=== PATIENT | female | born 1955 | race Caucasian/White ===

== ENCOUNTER → 2016-11-13 | Outpatient (CLI) | payer MEDICARE ==
--- NOTE | 2016-11-13 13:25 | US ---
EXAMINATION TYPE: US venous doppler duplex LE DATE OF EXAM: 11/13/2016 12:53 PM COMPARISON: NONE CLINICAL HISTORY: I10 htn,M79.89 bilateral lower extremity swelling. SIDE PERFORMED: Bilateral TECHNIQUE: The lower extremity deep venous system is examined utilizing real time linear array sonog simnó with graded compression, doppler sonography and color-flow sonography. VESSELS IMAGED: External Iliac Vein (EIV) Common Femoral Vein Deep Femoral Vein Greater Saphenous Vein * Femoral Vein Popliteal Vein Small Saphenous Vein * Proximal Calf Veins (* superficial vessels) Right Leg: Appears negative for DVT Left Leg: Appears negative for DVT Grayscale, color doppler, spectral doppler imaging performed of the deep veins of the lower extremiti es. There is normal flow, compressibility, vascular waveforms. IMPRESSION: No sonographic evidence of deep venous arthrosis within either lower extremity.
== END ==
LOC: RADUSWWP 12:17
PROVIDERS: ATTEND Family Medicine
DX: M79.89 Other specified soft tissue disorders (principal); I10 Essential (primary) hypertension
CPT/HCPCS: 93970

== ENCOUNTER → 2017-03-11 | Outpatient (CLI) | payer MEDICARE, OTHER ==
--- NOTE | 2017-03-12 08:23 | BD ---
EXAMINATION TYPE: MG DEXA axial skeleton. DATE OF EXAM: 03/11/2017 COMPARISON: NONE CLINICAL HISTORY: 61-year-old female postmenopausal screening Height: 5FT 1IN Weight: 219 FRAX RISK QUESTIONS: Alcohol (3 or more units per day): NO Family History (Parent hip fracture): NO Glucocorticoids (More than 3mos): NO (Ex: prednisone, prednisolone, methylprednisolone, dexamethasone, and hydrocortisone). History of Fracture in Adulthood: NO Secondary Osteoporosis: 1. Type 1 Diabetes: NO 2. Hyperthyroidism: NO 3. Menopause before 45: YES 4. Malnutrition: NO 5. Chronic liver disease: NO Rheumatoid Arthritis: NO Current Tobacco Use: NO RISK FACTORS HISTORY OF: Postmenopausal woman: TOTAL HYST AG E 45 MEDICATIONS: Additional Medications: ATENOLOL,LIPITOR,ABILIFY, VENLAFAXINE, TOPIRAMATE,TRAZADONE, CLONAZEPAM Additional History: EXAM MEASUREMENTS: Bone mineral densitometry was performed using the [employer] System. Bone mineral density as measured about the Lumbar spine is: ----- L1-L4(G/cm2): 0.919 T Score Values are as follows: ----- L2: -2.1 ----- L3: -2.3 ----- L4: -2.6 ----- L1-L4: -2.2 BASELINE Bone mineral density about the R hip (g/cm2): 0.844 Bone mineral density about the L hip (g/cm2): 0.837 T Score values are as follows: -----R Neck: -1.4 -----L Neck: -1.4 -----R Total: -0.2 -----L Total: -0.4 BASELINE IMPRESSION: Osteopenia (T Score between -2.5 and -1 as noted by T score values There is slightly increased risk of fracture and the patient may be considered for treatment. Re-Screen 2-5 years. NOTE: T-SCORE=SD OF THE YOUNG ADULT MEAN.
== END | disposition home or self-care (01) ==
LOC: RADBDWWP 14:28
PROVIDERS: ATTEND Obstetrics & Gynecology
DX: M85.89 Other specified disorders of bone density and structure, multiple sites (principal); Z78.0 Asymptomatic menopausal state
CPT/HCPCS: 77080

== ENCOUNTER → 2017-05-28 | Outpatient (CLI) | payer MEDICARE, OTHER ==
--- NOTE | 2017-05-28 10:55 | XR ---
EXAMINATION TYPE: XR KUB DATE OF EXAM: 05/28/2017 COMPARISON: 08/19/2011 HISTORY: Pain renal stone TECHNIQUE: One view abdominal series FINDINGS: The osseous structures are intact. The bowel gas pattern is nonspecific. Lung bases are clear. LAP- BAND surgery noted. Osteitis pubis condensans noted. Retained fecal debris limits assessment of the r enal outlines. No obvious suspicious calcifications. IMPRESSION: 1. Nonspecific abdomen. 3 tiny less than 5 mm calcifications left pelvis are nonspecific and likely vascular. Present on the previous x-ray.
== END | disposition home or self-care (01) ==
LOC: RADXRMAIN 10:34
PROVIDERS: ATTEND Urology
DX: N28.9 Disorder of kidney and ureter, unspecified (principal)
CPT/HCPCS: 74018

== ENCOUNTER → 2017-07-02 | Outpatient (CLI) | payer MEDICARE, OTHER ==
[2017-07-02 14:37] LABS: HCT 42.6 % (34.0-46.0); HGB 13.6 gm/dL (11.4-16.0); MCH 27.5 pg (25.0-35.0); MCV 86.1 fL (80.0-100.0); Mean Platelet Volume 7.7; Platelet Count 266 k/uL (150-450); RBC 4.95 m/uL (3.80-5.40); RDW 14.1 % (11.5-15.5)
[2017-07-02 14:44] LABS: Appearance,Urine Clear (Clear); Bilirubin,Urine Negative (Negative); Blood,Urine Negative (Negative); Color,Urine Yellow; Glucose,Urine (UA) Negative (Negative); Ketones,Urine Negative (Negative); Leukocyte Esterase,Urine Negative (Negative); Nitrite,Urine Negative (Negative); Protein,Urine Negative (Negative); Specific Gravity,Urine 1.014 (1.001-1.035); Urobilinogen,Urine <2.0 mg/dL (<2.0)
[2017-07-02 14:48] LABS: ALT 12 U/L (9-52); AST 21 U/L (14-36); Albumin 4.3 g/dL (3.5-5.0); Alkaline Phosphatase 117 U/L (38-126); Anion Gap 15 mmol/L; Blood Urea Nitrogen 22 mg/dL (7-17); Calcium 9.9 mg/dL (8.4-10.2); Carbon Dioxide 20 mmol/L (22-30); Chloride 110 mmol/L (98-107); Glucose 92 mg/dL (74-99); Phosphorus 2.6 mg/dL (2.5-4.5); Potassium 4.5 mmol/L (3.5-5.1); Sodium 145 mmol/L (137-145); Total Bilirubin 0.4 mg/dL (0.2-1.3); Total Protein 6.9 g/dL (6.3-8.2)
== END | disposition home or self-care (01) ==
LOC: LABWHC1 13:48
PROVIDERS: ATTEND Internal Medicine
DX: D64.9 Anemia, unspecified (principal); N39.0 Urinary tract infection, site not specified; E83.39 Other disorders of phosphorus metabolism
CPT/HCPCS: 36415; 80053; 81003; 84100; 85027

== ENCOUNTER → 2018-03-05 | Outpatient (CLI) | payer MEDICARE ==
[2018-03-05 13:58] LABS: Basophils # (A) 0.1 k/uL (0-0.2); Basophils % (A) 1 %; Eosinophils # (A) 0.5 k/uL (0-0.7); Eosinophils % (A) 5 %; HCT 44.4 % (34.0-46.0); HGB 13.6 gm/dL (11.4-16.0); Lymphocytes # (A) 1.9 k/uL (1.0-4.8); Lymphocytes % (A) 21 %; MCH 27.2 pg (25.0-35.0); MCHC 30.7 g/dL (31.0-37.0); MCV 88.7 fL (80.0-100.0); Monocytes # (A) 0.5 k/uL (0-1.0); Monocytes % (A) 6 %; Neutrophils % (A) 66 %; Platelet Count 294 k/uL (150-450); RBC 5.01 m/uL (3.80-5.40); RDW 14.5 % (11.5-15.5); WBC 9.1 k/uL (3.8-10.6)
[2018-03-05 15:04] LABS: Appearance,Urine Cloudy (Clear); Bacteria,Urine Occasional /hpf; Bilirubin,Urine Negative (Negative); Blood,Urine Negative (Negative); Color,Urine Yellow; Glucose,Urine (UA) Negative (Negative); Hyaline Casts,Urine 5 /lpf (0-2); Ketones,Urine Negative (Negative); Leukocyte Esterase,Urine Negative (Negative); Mucus,Urine Occasional /hpf; Nitrite,Urine Negative (Negative); Protein,Urine Trace (Negative); RBC,Urine <1 /hpf (0-5); Squamous Epithelial Cell,Urine 9 /hpf (0-4); Urobilinogen,Urine <2.0 mg/dL (<2.0); WBC,Urine 2 /hpf (0-5)
[2018-03-05 19:55] LABS: Iron Saturation 22.44 (12.00-45.00)
[2018-03-05 20:03] LABS: Vitamin D 25 Hydroxy 38.9 ng/mL (30.0-100.0)
[2018-03-05 20:26] LABS: Parathyroid Hormone Intact 111.5 pg/mL (14.0-72.0)
[2018-03-05 20:27] LABS: Albumin 4.5 g/dL (3.80-4.90); Albumin/Globulin Ratio 2.25 (1.20-2.10); Anion Gap 12.5 mmol/L (4.00-12.00); Calcium 9.2 mg/dL (8.7-10.3); Carbon Dioxide 24.5 mmol/L (21.6-31.8); Phosphorus 4.3 mg/dL (2.4-5.1); Total Bilirubin 0.5 mg/dL (0.3-1.2); Total Protein 6.5 g/dL (6.2-8.2); Uric Acid 6.1 mg/dL (2.9-7.7)
== END | disposition home or self-care (01) ==
LOC: LABWHC1 12:57
PROVIDERS: ATTEND Internal Medicine
DX: N17.9 Acute kidney failure, unspecified (principal); N39.0 Urinary tract infection, site not specified; N25.81 Secondary hyperparathyroidism of renal origin; E55.9 Vitamin D deficiency, unspecified; M10.9 Gout, unspecified
CPT/HCPCS: 36415; 80053; 81001; 82306; 82728; 83540; 83550; 83735; 83970; 84100; 84550; 85025

== ENCOUNTER → 2018-03-10 | Outpatient (CLI) | payer MEDICARE ==
[2018-03-10 08:09] VITALS: BP 134/88; PULSE 76; TEMP 97.6; BMI 40.4
--- NOTE | 2018-03-10 08:45 | P.HPOB ---
History of Present Illness H&P Date: 03/10/18 Chief Complaint: The patient is here for her routine gynecologic exam and mammogram. This is a 62 year old G3 PIII with an LMP of 2000. She is status post BAMBI BSO for benign reasons. The patient is without gynecologic complaints. Review of Systems The patient has gained 3 pounds over the last year. She denies respiratory, cardiac, or G.I. problems. Past Medical History Past Medical History: Hyperlipidemia, Hypertension Additional Past Medical History / Comment(s): Osteopenia. 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 BAMBI BSO was done for benign reasons. History of Any Multi-Drug Resistant Organisms: None Reported Past Surgical History: Bariatric Surgery (Lap band surgery 2005), Hysterectomy ( BAMBI BSO in 2000) Additional Past Surgical History / Comment(s): Kidney stones removed. Colonoscopy 2008. Past Psychological History: Bipolar, Depression Smoking Status: Former smoker (Quit 1996) Past Alcohol Use History: None Reported Past Drug Use History: Marijuana (Many years ago) Additional Drug Use History / Comment(s): Used marijuana many years ago. Denies any current use. Additional History: She has been since 1973. She does not work outside the home. Her has had medical issues. - Past Family History Sister(s) Family Medical History: Cancer (Breast cancer and 2 sisters.) Brother(s) Family Medical History: Cancer (Bone cancer), COPD (In 2nd brother.) Mother Family Medical History: Cancer (Cervical cancer) Medications and Allergies Home Medications Medication Instructions Recorded Confirmed Type ARIPiprazole [Abilify] 10 mg PO DAILY 03/10/18 03/10/18 History Atenolol [Tenormin] 25 mg PO DAILY 03/10/18 03/10/18 History Atorvastatin [Lipitor] 20 mg PO DAILY 03/10/18 03/10/18 History Cholecalciferol [Vitamin D3] 1,000 unit PO DAILY 03/10/18 03/10/18 History Multivitamin [Multivitamins Adult 1 each PO DAILY 03/10/18 03/10/18 History Gummies] Topiramate [Topamax] 100 mg PO DAILY 03/10/18 03/10/18 History Venlafaxine HCl ER [Effexor XR] 150 mg PO DAILY 03/10/18 03/10/18 History clonazePAM 1 mg PO HS 03/10/18 03/10/18 History traZODone HCL 150 mg PO HS 03/10/18 03/10/18 History Allergies Allergy/AdvReac Type Severity Reaction Status Date / Time No Known Allergies Allergy Unverified 03/10/18 07:58 Exam Vital Signs Temp Pulse BP 03/10/18 08:07 97.6 F 76 134/88 Intake and Output 03/09/18 03/10/18 03/10/18 22:59 06:59 14:59 Other: Weight 103.419 kg Height 5'3", weight 128 pounds, BMI 40.4. This is a well-developed well-nourished heavyset white female who is alert and oriented times 3 in no acute distress. HEENT: Within normal limits. NECK: Supple without mass or thyromegaly. CHEST AND LUNGS: Clear to auscultation. HEART: Regular rate and rhythm. BREASTS: Are without mass or discharge. AXILLARY EXAM: Negative for adenopathy. BACK: Negative for CVA tenderness. ABDOMEN: Soft, nontender, without palpable masses. PELVIC EXAM: External genitalia appears normal with mild atrophy. There is a erythema in the groin creases which extend to the inner thigh and buttock area. These groin creases are quite moist. Vagina appears normal mild atrophy. There is no evidence of prolapse. Bimanual examination is negative for mass or tenderness. RECTAL EXAM: Rectovaginal exam is negative for mass or tenderness and is negative for occult blood. EXTREMITIES: Nontender. IMPRESSION: 1. 62-year-old menopausal female status post BAMBI BSO for benign reasons with normal gynecologic exam. 2. Erythema intertrigo in the groin creases probably secondary to excess moisture. 3. Osteopenia. PLAN: 1. Pap smears have been discontinued. 2. Self breast awareness was discussed with the patient. 3. Screening mammogram will be done today. 4. Osteoporosis prevention was discussed. I have stressed the importance of adequate calcium, vitamin D and regular exercise. Recommended amounts of calcium and vitamin D were also discussed. We will plan on repeating bone density testing in one year. 5. Nystatin powder to the groin creases BID. She will try to thoroughly dry the area after bathing prior to applying the nystatin powder. The electronic prescription will be sentenced to [facility]. 6. BRCA testing was offered. She will consider this but at this time is not interested. 7. Colonoscopy was discussed with the patient since it is been 10 years since her last one. She states she has done Cologard testing as an alternative through her primary care physician and she states this was negative 1 month ago. 8. She will return in one year.
--- NOTE | 2018-03-13 12:52 | MM ---
Reason for exam: screening (asymptomatic). Last mammogram was performed 1 year and 1 month ago. History: Patient is postmenopausal. Family history of premenopausal breast cancer in 2 sisters at age 42. Took estrogen for 4 years. MG 3D Screening Mammo W/Cad Bilateral CC and MLO view(s) were taken. Prior study comparison: February 11, 2017, bilateral MG 3d screening mammo w/cad. January 21, 2016, bilateral MG 3d screening mammo w/cad. There are scattered fibroglandular densities. Bilateral chronic nodularity. No significant changes when compared with prior studies. ASSESSMENT: Benign, BI-RAD 2 RECOMMENDATION: Routine screening mammogram of both breasts in 1 year.
== END | disposition home or self-care (01) ==
LOC: WWCWWP 07:44
PROVIDERS: ATTEND Obstetrics & Gynecology
DX: Z12.31 Encounter for screening mammogram for malignant neoplasm of breast (principal)
CPT/HCPCS: 77063; 77067

== ENCOUNTER → 2018-11-18 | Outpatient (CLI) | payer MEDICARE ==
--- NOTE | 2018-11-19 10:55 | ECHOF ---
Referral Reason:I27.20 Pulmonary hypertension, unspecified MEASUREMENTS -------- HEIGHT: 157.5 cm WEIGHT: 96.2 kg BP: RVIDd: 3.9 cm (< 3.3) IVSd: 0.9 cm (0.6 - 1.1) LVIDd: 3.4 cm (3.9 - 5.3) LVPWd: 1.3 cm (0.6 - 1.1) IVSs: 1.3 cm LVIDs: 2.6 cm LVPWs: 1.7 cm LAESV Index (A-L): 14.22 ml/m Ao Diam: 2.6 cm (2.0 - 3.7) AV Cusp: 1.8 cm (1.5 - 2.6) LA Diam: 3.8 cm (2.7 - 3.8) MV EXCURSION: 12.842 mm (> 18.000) MV EF SLOPE: 33 mm/s (70 - 150) EPSS: 0.5 cm MV E Henok: 0.50 m/s MV DecT: 271 ms MV A Henok: 0.67 m/s MV E/A Ratio: 0.74 RAP: 5.00 mmHg RVSP: 14.41 mmHg TAPSE: 1.84 cm FINDINGS -------- Sinus rhythm. This was a technically adequate study. LV size, wall thickness and systolic function are normal, with an EF greater than 55%. The left ashley tricular size is normal. The diastolic filling pattern is normal for the age of the patient 12.08. The right ventricle is normal in size. Normal LA size by volume 22+/-6 ml/m2. The right atrial size is normal. Interatrial and interventricular septum intact. The aortic valve is trileaflet and appears structurally normal. There is mild aortic regurgitation. The mitral valve is normal. Mild mitral regurgitation is present. Mild tricuspid regurgitation present. Right ventricular systolic pressure is normal at < 35 mmHg. The right ventricular systolic pressure, as measured by Doppler, is 14.41mmHg. Trace/mild (physiologic) pulmonic regurgitation. The aortic root size is normal. Echo free space represents a pericardial fat pad. CONCLUSIONS -------- 1. Sinus rhythm. 2. This was a technically adequate study. 3. LV size, wall thickness and systolic function are normal, with an EF greater than 55%. 4. The left ventricular size is normal. 5. The diastolic filling pattern is normal for the age of the patient 12.08 6. Normal LA size by volume 22+/-6 ml/m2. 7. The right atrial size is normal. 8. There is mild aortic regurgitation. 9. Mild mitral regurgitation is present. 10. Mild tricuspid regurgitation present. 11. Right ventricular systolic pressure is normal at < 35 mmHg. 12. Trace/mild (physiologic) pulmonic regurgitation. 13. The aortic root size is normal. 14. Echo free space represents a pericardial fat pad. BRINE WELL OPERATOR: Gisela Mendes RDCS
== END | disposition home or self-care (01) ==
LOC: RADECHMAIN 14:47
PROVIDERS: ATTEND Internal Medicine Sleep Medicine
DX: I08.3 Combined rheumatic disorders of mitral, aortic and tricuspid valves (principal); I27.20 Pulmonary hypertension, unspecified
CPT/HCPCS: 93306

== ENCOUNTER → 2019-08-16 | Outpatient (CLI) | payer MEDICARE ==
[2019-08-16 08:02] VITALS: BP 104/76; PULSE 72; RESP 20; TEMP 98
--- NOTE | 2019-08-16 08:34 | P.HPOB ---
History of Present Illness H&P Date: 08/16/19 Chief Complaint: The patient is here for her routine gynecologic exam and ma mmogram. This is a 64-year-old with an LMP of 2000. The patient is without gynecologic complaints. The patient is status post BAMBI/BSO for benign reasons. Review of Systems The patient's weight has been stable over the last year. She denies respiratory, cardiac, or G.I. problems. Past Medical History Past Medical History: Hyperlipidemia, Hypertension Additional Past Medical History / Comment(s): Osteopenia. 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 BAMBI BSO was done for benign reasons. History of Any Multi-Drug Resistant Organisms: None Reported Past Surgical History: Bariatric Surgery, Hysterectomy Additional Past Surgical History / Comment(s): Kidney stones removed. Colonoscopy 2008(Cologard 2018). Past Psychological History: Bipolar, Depression Smoking Status: Former smoker Past Alcohol Use History: None Reported Additional Past Alcohol Use History / Comment(s): Quit smoking in 1996. Past Drug Use History: Marijuana Additional Drug Use History / Comment(s): Used marijuana many years ago. Denies any current use. Additional History: She has been a since 2019. She is not sexually active. She does not work outside of the home. - Past Family History Sister(s) Family Medical History: Cancer Additional Family Medical History / Comment(s): 2 sisters with breast cancer. Brother(s) Family Medical History: Cancer, COPD Additional Family Medical History / Comment(s): Bone cancer. Another brother had COPD. Mother Family Medical History: Cancer Additional Family Medical History / Comment(s): Cervical cancer. Medications and Allergies Home Medications Medication Instructions Recorded Confirmed Type ARIPiprazole [Abilify] 10 mg PO DAILY 03/10/18 08/16/19 History Atenolol [Tenormin] 25 mg PO DAILY 03/10/18 08/16/19 History Atorvastatin [Lipitor] 10 mg PO HS 03/10/18 08/16/19 History Cholecalciferol [Vitamin D3] 1,000 unit PO DAILY 03/10/18 08/16/19 History Multivitamin [Multivitamins Adult 1 each PO DAILY 03/10/18 08/16/19 History Gummies] Topiramate [Topamax] 50 mg PO BID 03/10/18 08/16/19 History Venlafaxine HCl ER [Effexor XR] 300 mg PO DAILY 03/10/18 08/16/19 History clonazePAM 1 mg PO HS 03/10/18 08/16/19 History traZODone HCL 150 mg PO HS 03/10/18 08/16/19 History Areds 2 tab PO DAILY 08/16/19 08/16/19 History Allergies Allergy/AdvReac Type Severity Reaction Status Date / Time No Known Allergies Allergy Unverified 08/16/19 08:00 Exam Vital Signs Temp Pulse Resp BP Pulse Ox 08/16/19 08:00 98.0 F 72 20 104/76 96 Intake and Output 08/15/19 08/16/19 08/16/19 22:59 06:59 14:59 Other: Weight 102.965 kg Height 5 feet 2 inches, weight 227 pounds, BMI 41.5. This is a well-developed well-nourished heavyset white female who is alert and oriented times 3 in no acute distress. HEENT: Within normal limits. NECK: Supple without mass or thyromegaly. CHEST AND LUNGS: Clear to auscultation. HEART: Regular rate and rhythm. BREASTS: Are without mass or discharge. AXILLARY EXAM: Negative for adenopathy. BACK: Negative for CVA tenderness. ABDOMEN: Soft, nontender, without palpable masses. PELVIC EXAM: External genitalia appears normal with mild atrophy. Vagina appears normal mild atrophy. There is no evidence of prolapse. Bimanual examination is negative for mass or tenderness. RECTAL EXAM: Rectovaginal exam is negative for mass or tenderness and is negative for occult blood. There is moderate stool in the rectum. EXTREMITIES: Nontender. IMPRESSION: 1. 64-year-old menopausal female status post BAMBI/BSO for benign reasons with normal gynecologic exam. 2. History of osteopenia. PLAN: 1. Pap smears have been discontinued. 2. Self breast awareness was discussed with the patient. 3. Screening mammogram will be done today. 4. Osteoporosis prevention was discussed. I have stressed the importance of adequate calcium, vitamin D and regular exercise. Recommended amounts of calcium and vitamin D were also discussed. Her last bone density test was done on 03/11/2017 and I recommended repeating this. The order slip was given to the patient for this. 5. She was advised to return in one year for her annual well woman exam.
--- NOTE | 2019-08-17 08:26 | MM ---
Reason for exam: screening (asymptomatic). Last mammogram was performed 1 year and 5 months ago. History: Patient is postmenopausal. Family history of premenopausal breast cancer in 2 sisters at age 42. Took estrogen for 4 years. Physical Findings: A clinical breast exam by your physician is recommended on an annual basis and results should be correlated with mammographic findings. MG 3D Screening Mammo W/Cad Bilateral CC and MLO view(s) were taken. XCCL view(s) were taken of the right breast. Prior study comparison: March 10, 2018, bilateral MG 3d screening mammo w/cad. February 11, 2017, bilateral MG 3d screening mammo w/cad. There are scattered fibroglandular densities. There is chronic nodularity bilaterally. There is no dominant lesion. No significant changes when compared with prior studies. ASSESSMENT: Benign, BI-RAD 2 RECOMMENDATION: Routine screening mammogram of both breasts in 1 year.
== END | disposition home or self-care (01) ==
LOC: WWCWWP 07:34
PROVIDERS: ATTEND Obstetrics & Gynecology
DX: Z12.31 Encounter for screening mammogram for malignant neoplasm of breast (principal)
CPT/HCPCS: 77063; 77067

== ENCOUNTER → 2020-10-03 | Outpatient (CLI) | payer MEDICARE ==
[2020-10-03 08:17] VITALS: BP 125/73; PULSE 117; RESP 20; TEMP 98
--- NOTE | 2020-10-03 08:57 | P.HPOB ---
History of Present Illness H&P Date: 10/03/20 Chief Complaint: The patient is here for her routine gynecologic exam and ma mmogram. This is a 65-year-old with an LMP of 2000. The patient is status post BAMBI/BSO for benign reasons. The patient is without gynecologic complaints. Review of Systems The patient has lost 9 pounds over the last year. The patient states she woke up feeling slightly weak. She denies respiratory, cardiac, or G.I. problems. She denies chest pain or chest discomfort. Past Medical History Past Medical History: Hyperlipidemia, Hypertension Additional Past Medical History / Comment(s): Osteopenia. 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 BAMBI BSO was done for benign reasons. History of Any Multi-Drug Resistant Organisms: None Reported Past Surgical History: Bariatric Surgery, Hysterectomy Additional Past Surgical History / Comment(s): Lap band surgery 2005. Kidney stones removed. Colonoscopy 2008(Cologard 2018). Past Psychological History: Bipolar, Depression Smoking Status: Former smoker Past Alcohol Use History: None Reported Additional Past Alcohol Use History / Comment(s): Quit smoking in 1996. Past Drug Use History: Marijuana Additional Drug Use History / Comment(s): Used marijuana many years ago. Denies any current use. Additional History: The patient has been a since 2019. She is not seeing anybody at this time and is not sexually active. She does not work outside of the home. - Past Family History Sister(s) Family Medical History: Cancer Additional Family Medical History / Comment(s): 2 sisters with breast cancer. BRCA status is not known. Brother(s) Family Medical History: Cancer, COPD Additional Family Medical History / Comment(s): Bone cancer. Another brother had COPD. Mother Family Medical History: Cancer Additional Family Medical History / Comment(s): Cervical cancer. Medications and Allergies Home Medications Medication Instructions Recorded Confirmed Type ARIPiprazole [Abilify] 10 mg PO DAILY 03/10/18 08/16/19 History Atorvastatin [Lipitor] 10 mg PO HS 03/10/18 08/16/19 History Cholecalciferol [Vitamin D3] 1,000 unit PO DAILY 03/10/18 08/16/19 History Multivitamin [Multivitamins Adult 1 each PO DAILY 03/10/18 08/16/19 History Gummies] Topiramate [Topamax] 50 mg PO BID 03/10/18 08/16/19 History Venlafaxine HCl ER [Effexor XR] 300 mg PO DAILY 03/10/18 08/16/19 History atenoloL [Tenormin] 25 mg PO DAILY 03/10/18 08/16/19 History clonazePAM 1 mg PO HS 03/10/18 08/16/19 History traZODone HCL 150 mg PO HS 03/10/18 08/16/19 History Areds 2 tab PO DAILY 08/16/19 08/16/19 History Allergies Allergy/AdvReac Type Severity Reaction Status Date / Time No Known Allergies Allergy Unverified 10/03/20 08:07 Exam Vital Signs Temp Pulse Resp BP Pulse Ox 10/03/20 08:13 98.0 F 117 H 20 125/73 96 Intake and Output 10/02/20 10/03/20 10/03/20 22:59 06:59 14:59 Other: Weight 98.883 kg Height 5 feet 2 inches, weight 218 pounds, BMI 39.9. This is a well-developed well-nourished white female who is alert and oriented times 3 in no acute distress. Skin is slightly diaphoretic. HEENT: Within normal limits. NECK: Supple without mass or thyromegaly. CHEST AND LUNGS: Clear to auscultation. HEART: Mild tachycardia with regular rhythm. BREASTS: Are without mass or discharge. AXILLARY EXAM: Negative for adenopathy. BACK: Negative for CVA tenderness. ABDOMEN: Soft, nontender, without palpable masses. PELVIC EXAM: External genitalia appears normal with mild atrophy. Vagina appears normal with mild atrophy. There is no evidence of prolapse. Bimanual examination is negative for mass or tenderness. RECTAL EXAM: Rectovaginal exam is negative for mass or tenderness and is negative for occult blood. EXTREMITIES: Nontender. IMPRESSION: 1. 65-year-old menopausal female status post BAMBI/BSO with normal gynecologic exam. 2. History of osteopenia. 3. Mild tachycardia, slight diaphoresis, and the patient states she feels slightly weak. She states she has not eaten this morning. I have recommended that she eat something since this may represent the form of hypoglycemia. I have offered to get her something to eat but she is declining this. PLAN: 1. Pap smears have been discontinued. 2. Self breast awareness was discussed with the patient. We have reviewed symptoms that can be associated with inflammatory breast cancer. 3. Screening mammogram will be done today. 4. Osteoporosis prevention was discussed. I have stressed the importance of adequate calcium, vitamin D and regular exercise. Recommended amounts of calcium and vitamin D were also discussed. Bone density testing will be done today. 5. I have recommended that the patient try to eat breakfast as soon as possible. I have recommended that she contact her primary care physician if she is not feeling well. 6. She was advised to return in one year for her annual well woman exam.
--- NOTE | 2020-10-03 16:49 | BD ---
EXAMINATION TYPE: Axial Bone Density DATE OF EXAM: 10/03/2020 COMPARISON: 03.11.2017 CLINICAL HISTORY: 65 YR OLD FEMALE......ICD-10 CODE: Z78.0 POST MENOPAUSAL Height: 61.2 Weight: 215 FRAX RISK QUESTIONS: Glucocorticoids (More than 3mos): YES (Ex: prednisone, prednisolone, methylprednisolone, dexamethasone, and hydrocortisone). Secondary Osteoporosis: YES 3. Menopause before 45: YES RISK FACTORS HISTORY OF: Postmenopausal woman: YES, AT AGE 44 YRS OLD Lost more than 2 inches in height since high school: YES Frequent falls: YES, UNSTEADY, SOB Poor Health: DIAPHORETIC, SOB AT TIME OF THIS TEST Hyperparathyroidism: NO Adrenal Insufficiency: NO MEDICATIONS: Prednisone or other steroids: YES, FOR COPD, FOR ABOUT 3 YRS NOW Additional Medications: ANTIDEPRESSANTS, AND ANTI ANXIETY MEDS, MANY OF THEM Additional History: DEPRESSION AND ANXIETY, LAP BAND, 2006, BACK PAIN, SWELLING IN HANDS AND LEGS EXAM MEASUREMENTS: Bone mineral densitometry was performed using the [employer] System. Bone mineral density as measured about the Lumbar spine is: ----- L1-L4(G/cm2): 0.939 T Score Values are as follows: ----- L1: -0.9 ----- L2: -2.4 ----- L3: -2.2 ----- L4: -2.5 ----- L1-L4: -2.0 Bone mineral density has: Decreased -0.1% since study of: 03.11.2017 Bone mineral density about the R hip (g/cm2): 0.961 Bone mineral density about the L hip (g/cm2): 0.960 T Score values are as follows: -----R Neck: -1.4 -----L Neck: -1.3 -----R Total: -0.4 -----L Total: -0.4 Bone mineral density has: Decreased -0.8% since study of: 03.11.2017 FRAX%s: THERE IS A 12.0% CHANCE FOR A MAJOR OSTEOPOROTIC FX AND A 1.2% FOR HIP......PROBABILITY F OR FX IN 10 YRS TIME IMPRESSION: Osteopenia (T Score between -2.5 and -1). There is slightly increased risk of fracture and the patient may be considered for treatment. Re-Screen 2-5 years. NOTE: T-SCORE=SD OF THE YOUNG ADULT MEAN.
== END ==
LOC: WWCWWP 07:58
PROVIDERS: ATTEND Obstetrics & Gynecology
DX: Z12.31 Encounter for screening mammogram for malignant neoplasm of breast (principal); Z01.419 Encounter for gynecological examination (general) (routine) without abnormal findings; R61 Generalized hyperhidrosis; R00.0 Tachycardia, unspecified; I10 Essential (primary) hypertension; F31.9 Bipolar disorder, unspecified; E78.5 Hyperlipidemia, unspecified; Z87.891 Personal history of nicotine dependence; Z90.710 Acquired absence of both cervix and uterus; Z90.722 Acquired absence of ovaries, bilateral; Z87.39 Personal history of other diseases of the musculoskeletal system and connective tissue; Z79.899 Other long term (current) drug therapy; Z80.3 Family history of malignant neoplasm of breast
CPT/HCPCS: 77063; 77067; 77080

== ENCOUNTER 2021-06-25 08:36 | Day surgery (SDC) | payer MEDICARE ==
[2021-06-21 10:07] VITALS: BMI 38.2
[~2021-06-25 08:36] MED LIST: LACTATED RINGERS 1,000 ML IV SCH; LIDOCAINE 1% (10MG/ML) FOR IV START INTRADERMA PRN; ONDANSETRON 4 MG/2 ML VIAL IVP PRN
[2021-06-25 09:16] VITALS: TEMP 98.1
[2021-06-25] MEDS ORDERED: LACTATED RINGERS 1,000 ML IV ONE (09:17)
[2021-06-25] MEDS ORDERED: ONDANSETRON 4 MG/2 ML VIAL IVP ONE (09:28)
[2021-06-25] MEDS ORDERED: PROPOFOL 10 MG/ML 20 ML VIAL IV ONE (10:26)
--- NOTE | 2021-06-25 10:42 | P.PCN ---
Date of Procedure: 06/25/21 Procedure(s) Performed: BRIEF HISTORY: Patient is a 66-year-old pleasant right female scheduled for an elective colonoscopy as a part of evaluation of positive cologuard. PROCEDURE PERFORMED: Colonoscopy with snare polypectomy. PREOPERATIVE DIAGNOSIS: Positive cologuard IV sedation per Anesthesia. PROCEDURE: After informed consent was obtained, the patient, was brought into the endoscopy unit. IV sedation was administered by Anesthesia under continuous monitoring. Digital rectal examination was normal. Initially the Olympus CF-160 flexible video colonoscope was then inserted in the rectum, gradually advanced into the cecum without any difficulty. Careful examination was performed as the scope was gradually being withdrawn. Ileocecal valve and the appendiceal orifice were visualized and appeared normal. Prep was excellent. Mucosa of the cecum, ascending colon, transverse colon, appeared normal. In the descending colon there was a 6 mm sessile polyp removed by snare polypectomy. Rest of the descending colon, sigmoid colon, and rectum appeared normal. Retroflexion was performed in the rectum and no lesions were seen. The patient tolerated the procedure well. IMPRESSION: 6 mm sessile transverse colon polyp status post polypectomy Rest of the colon appeared normal RECOMMENDATIONS: Findings of this examination were discussed with the patient as well as a family. She was advised to follow with the biopsy results. If the biopsy results adenoma she can have a repeat colonoscopy in 5 years
[2021-06-25 11:05] VITALS: BP 126/75; PULSE 84; RESP 20
== END 2021-06-25 11:29 ==
LOC: ORWHC2ENDO 08:36
PROVIDERS: ATTEND Internal Medicine Gastroenterology
DX: Z12.11 Encounter for screening for malignant neoplasm of colon (principal); D12.3 Benign neoplasm of transverse colon; I10 Essential (primary) hypertension; E78.5 Hyperlipidemia, unspecified; J44.9 Chronic obstructive pulmonary disease, unspecified; F31.9 Bipolar disorder, unspecified; Z79.899 Other long term (current) drug therapy
CPT/HCPCS: 45385; 88305; J2405; J2704

== ENCOUNTER → 2021-10-04 | Outpatient (CLI) | payer MEDICARE | END | disposition home or self-care (01) | LOC: RADMAMWWP 08:43 | PROVIDERS: ATTEND Obstetrics & Gynecology | DX: Z53.9 Procedure and treatment not carried out, unspecified reason (principal) ==

== ENCOUNTER → 2021-11-27 | Outpatient (CLI) | payer MEDICARE ==
[2021-11-27 07:59] VITALS: BP 127/85; PULSE 109; RESP 18; TEMP 98
--- NOTE | 2021-11-27 08:36 | P.HPOB ---
History of Present Illness H&P Date: 11/27/21 Chief Complaint: The patient is here for her routine gynecologic exam and ma mmogram. This is a 66-year-old with an LMP of 2000. She is status post BAMBI/BSO for benign reasons. The patient is without gynecologic complaints. Review of Systems The patient's weight has been stable over the last year. She denies respiratory, cardiac, or G.I. problems. Past Medical History Past Medical History: COPD, Hyperlipidemia, Hypertension Additional Past Medical History / Comment(s): Osteopenia. Kidney stones. 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 History of Any Multi-Drug Resistant Organisms: None Reported Past Surgical History: Bariatric Surgery, Hysterectomy Additional Past Surgical History / Comment(s): BAMBI/BSO in 2000. Lap band surgery 2005. Kidney stones removed. Colonoscopy 2021(next after 5yr). Past Anesthesia/Blood Transfusion Reactions: Postoperative Nausea & Vomiting (PONV) Past Psychological History: Bipolar, Depression Smoking Status: Former smoker Past Alcohol Use History: None Reported Additional Past Alcohol Use History / Comment(s): Quit smoking in 1996. Past Drug Use History: Marijuana Additional Drug Use History / Comment(s): Used marijuana many years ago. Denies any current use. Additional History: The patient has been a since 2019. She is not sexually active. She does not work outside of the home. - Past Family History Sister(s) Family Medical History: Cancer Additional Family Medical History / Comment(s): 2 sisters with breast cancer. BRCA status is not known. Brother(s) Family Medical History: Cancer, COPD Additional Family Medical History / Comment(s): Bone cancer. Another brother had COPD. Mother Family Medical History: Cancer Additional Family Medical History / Comment(s): Cervical cancer. Medications and Allergies Home Medications Medication Instructions Recorded Confirmed Type ARIPiprazole [Abilify] 10 mg PO DAILY 03/10/18 11/27/21 History Atorvastatin [Lipitor] 10 mg PO HS 03/10/18 11/27/21 History Cholecalciferol [Vitamin D3] 1,000 unit PO DAILY 03/10/18 11/27/21 History Multivitamin [Multivitamins Adult 1 each PO DAILY 03/10/18 11/27/21 History Gummies] Topiramate [Topamax] 50 mg PO BID 03/10/18 11/27/21 History Venlafaxine HCl ER [Effexor XR] 300 mg PO DAILY 03/10/18 11/27/21 History clonazePAM 1 mg PO HS 03/10/18 11/27/21 History traZODone HCL 150 mg PO HS 03/10/18 11/27/21 History Areds 2 tab PO DAILY 08/16/19 11/27/21 History rOPINIRole HCL [Requip] 0.25 mg PO DAILY 11/27/21 11/27/21 History Allergies Allergy/AdvReac Type Severity Reaction Status Date / Time No Known Allergies Allergy Unverified 11/27/21 07:51 Exam Vital Signs Temp Pulse Resp BP Pulse Ox 11/27/21 07:55 98 F 109 H 18 127/85 96 Intake and Output 11/26/21 11/27/21 11/27/21 22:59 06:59 14:59 Other: Weight 99.337 kg Height 5 feet 2 inches, weight 219 pounds, BMI 40.1. This is a well-developed well-nourished white female who is alert and oriented times 3 in no acute distress. HEENT: Within normal limits. NECK: Supple without mass or thyromegaly. CHEST AND LUNGS: Clear to auscultation. HEART: Mild tachycardia with regular rhythm. BREASTS: Are without mass or discharge. There is slight redness in the crease beneath the left breast. The patient states this has been pruritic. AXILLARY EXAM: Negative for adenopathy. BACK: Negative for CVA tenderness. ABDOMEN: Soft, nontender, without palpable masses. PELVIC EXAM: External genitalia appears normal with mild atrophy. Vagina appears normal with mild atrophy. There is no evidence of prolapse. Bimanual examination is negative for mass or tenderness. RECTAL EXAM: Rectovaginal exam is negative for mass or tenderness and is negative for occult blood. EXTREMITIES: Nontender. IMPRESSION: 1. 66-year-old menopausal female status post BAMBI/BSO for benign reasons, with normal gynecologic exam. 2. Mild intertrigo in the crease beneath the left breast. 3. History of osteopenia. 4. Family history of breast cancer in her 2 sisters. PLAN: 1. Pap smears have been discontinued. 2. Self breast awareness was discussed with the patient. We have also discussed symptoms associated with inflammatory breast cancer. 3. Screening mammogram will be done today. 4. Osteoporosis prevention was discussed. I have stressed the importance of adequate calcium, vitamin D and regular exercise. Recommended amounts of calcium and vitamin D were also discussed. Her last bone density test was done on 10/03/2021. We'll plan on repeating this next year. 5. She has completed her Covid vaccination series and did receive one booster. I have recommended that she look into getting her second booster. 6. I recommended that she keep the area beneath the breasts clean and dry. Have also recommended that she get an [id number] antifungal medication, such as an athlete's foot cream and use this twice daily in this area. 7. The patient was advised to return in 1-2 years for her well woman examination. I recommended she continue yearly mammograms.
--- NOTE | 2021-11-28 10:02 | MM ---
Reason for Exam: Screening (asymptomatic). Last mammogram was performed 1 year(s) and 2 month(s) ago. Patient History: Menarche at age 12. First Full-Term at age 18. Left ovary removed at age 44. Right ovary removed at age 44. Hysterectomy at age 44. Postmenopausal. Estrogen for 4 years until age 48. Sister had breast cancer, age 42. Sister had breast cancer, age 42. Risk Values: Danita 5 year model risk: 8.6%. NCI Lifetime model risk: 28.7%. Prior Study Comparison: 03/10/2018 Bilateral Screening Mammogram, [facility]. 08/16/2019 Bilateral Screening Mammogram, [facility]. 10/03/2020 Bilateral Screening Mammogram, [facility]. Tissue Density: There are scattered fibroglandular densities. Findings: Analyzed By CAD. Stable small well-circumscribed masses in the bilateral breasts. Single benign-appearing round calcification left breast redemonstrated. There is no suspicious new group of microcalcifications or new suspicious mass in either breast. Overall Assessment: Benign, BI-RAD 2 Management: Screening Mammogram of both breasts in 1 year. A clinical breast exam by your physician is recommended on an annual basis and results should be correlated with mammographic findings. Electronically signed and approved by: Joseph Tee M.D.
== END ==
LOC: WWCWWP 07:46
PROVIDERS: ATTEND Obstetrics & Gynecology
DX: Z12.31 Encounter for screening mammogram for malignant neoplasm of breast (principal); Z01.419 Encounter for gynecological examination (general) (routine) without abnormal findings; E66.9 Obesity, unspecified; Z68.41 Body mass index [BMI] 40.0-44.9, adult; Z87.891 Personal history of nicotine dependence
CPT/HCPCS: 77063; 77067